=== PATIENT | female | born 1950 | race Caucasian/White ===

== ENCOUNTER → 2016-12-06 | Outpatient (CLI) | payer OTHER ==
[~2016-12-06] MED LIST: ASPIRIN81 M2; CALCIUM500 MG; CRESTOR10 MG; DAILY VITAMIN1 EAC5; FISH OIL300 MG; FOLIC ACID1 MG; VITAMIN D1000 UNI1
== END ==
LOC: RAD 09:26
DX: Z12.31 Encounter for screening mammogram for malignant neoplasm of breast (principal)

== ENCOUNTER → 2016-12-30 | Outpatient (CLI) | payer OTHER | LOC: ULTRA 11:27 | DX: N63 Unspecified lump in breast (principal) ==

== ENCOUNTER → 2017-01-30 | Outpatient (CLI) | payer OTHER | LOC: NUC 10:57 | DX: M85.89 Other specified disorders of bone density and structure, multiple sites (principal); N91.2 Amenorrhea, unspecified; Z78.0 Asymptomatic menopausal state ==

== ENCOUNTER → 2017-07-07 | Outpatient (CLI) | payer OTHER | LOC: RAD 07:27 | DX: M41.86 Other forms of scoliosis, lumbar region (principal) ==

== ENCOUNTER → 2017-07-07 | Outpatient (CLI) | payer OTHER | LOC: MRI 15:54 | DX: M51.26 Other intervertebral disc displacement, lumbar region (principal); M40.46 Postural lordosis, lumbar region; M43.16 Spondylolisthesis, lumbar region; M47.896 Other spondylosis, lumbar region; N28.1 Cyst of kidney, acquired ==

== ENCOUNTER 2018-11-05 21:35 | Emergency (ER) | payer OTHER ==
[~2018-11-05] VITALS: Ht 160 cm; Wt 61.2 kg
[2018-11-05 22:00] LABS: URINE BILIRUBIN NEGATIVE (Negative); URINE BLOOD TRACE (Negative); URINE CLARITY CLEAR; URINE COLOR YELLOW; URINE GLUCOSE-RANDOM* NEGATIVE (Negative); URINE KETONES NEGATIVE (Negative); URINE LEUKOCYTES-REFLEX NEGATIVE (Negative); URINE NITRITE-REFLEX NEGATIVE (Negative); URINE PROTEIN (DIPSTICK) NEGATIVE (Negative); URINE SPECIFIC GRAVITY <= 1.005 (1.005-1.035); URINE UROBILINOGEN 0.2 E.U./dl (0.2-1.0)
[2018-11-05 22:32] LABS: ABSOLUTE NEUTROPHILS 6.3 thou/uL (1.4-8.2); BASOPHILS 0.9 % (0.0-2.0); EOSINOPHILS 0.1 % (0.0-3.0); HEMATOCRIT 36.4 % (37.0-47.0); HEMOGLOBIN 12.3 gm/dL (12.0-15.0); LYMPHOCYTES 16.6 % (24.0-44.0); MCH 29.4 pg (26.0-34.0); MCHC 33.7 g/dL (28.0-37.0); MCV 87.2 fL (80.0-100.0); MONOCYTES 4.1 % (1.0-8.0); PLATELET COUNT 276 thou/uL (150-400); POLYS 78.3 % (36.0-66.0); RBC 4.17 mil/uL (4.20-5.00); RDW 14.9 % (10.5-14.5)
[2018-11-05] MEDS ORDERED: PREDNISONE 10 M10 MG PO (22:36)
[2018-11-05] MEDS ORDERED: COZAAR 25 MG TA25 M1 PO (22:37)
[2018-11-05] MEDS ORDERED: BONIVA150 MG PO (22:38)
[2018-11-05 22:39] LABS: BUN 19 mg/dL (7-18); CHLORIDE 106 mmol/L (98-107); CREATININE 1.1 mg/dL (0.6-1.0)
[2018-11-05 22:41] LABS: ANION GAP 11 mmol/L (7-16); CO2 26 mmol/L (21-32); GLUCOSE 105 mg/dL (74-106); POTASSIUM 4.3 mmol/L (3.5-5.1); SODIUM 143 mmol/L (136-145)
[2018-11-05 22:51] LABS: ALBUMIN 3.9 g/dL (3.4-5.0); LIPASE 93 U/L (73-393); SGOT 19 U/L (15-37); SGPT 23 U/L (30-65); TOTAL BILIRUBIN 0.7 mg/dL (<0.1-1.0); TROPONIN-I <0.06 ng/mL (<0.06)
[2018-11-06 00:15] VITALS: BP 171/76
--- NOTE | 2018-11-06 08:40 | EKG ---
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 : 1950 Requested By: Garry Wei Order Number: [id number] MD: Deion Padilla Measurements Intervals [place] Rate: 54 P: 12 NV: 128 QRS: -35 QRSD: 102 T: 2 QT: 428 QTc: 406 Interpretive Statements Sinus bradycardia Left axis deviation Poor R wave progression Compared to ECG 03/13/1992 08:45:00 Left-axis deviation now present Electronically Signed On 11-06-2018 8:40:02 CDT by Deion Padilla [email or web address] ��������������������������������������������� <ELECTRONICALLY SIGNED> ���������������������������������������� By: Deion Padilla MD, [facility] ��������������������������������������������� 11/06/18 0840 D: [id number] Deion Padilla MD, FACC /EPI
== END 2018-11-06 00:19 | disposition home or self-care (01) ==
LOC: ER 21:35
PROVIDERS: Emergency Medicine
DX: K52.9 Noninfective gastroenteritis and colitis, unspecified (principal)

== ENCOUNTER → 2019-03-04 | Outpatient (CLI) | payer OTHER ==
[~2019-03-04] MED LIST changes: +BONIVA150 MG PO; +COZAAR 25 MG TA25 M1 PO; +PREDNISONE 10 M10 MG PO
== END ==
LOC: RAD 15:45
DX: Z12.31 Encounter for screening mammogram for malignant neoplasm of breast (principal)

== ENCOUNTER → 2019-05-21 | Outpatient (CLI) | payer OTHER | LOC: NUC 10:12 | DX: M81.0 Age-related osteoporosis without current pathological fracture (principal); M85.88 Other specified disorders of bone density and structure, other site ==

== ENCOUNTER → 2019-07-23 | Outpatient (CLI) | payer OTHER ==
[~2019-07-23] VITALS: Ht 162.6 cm; Wt 60.3 kg
[~2019-07-23] MED LIST changes: +AMITRIPTYLINE H25 M4 PO; +FLEXERIL PO; +HYDROCODON-ACE1 EAC5 PO; +LORCET 5-325 M1 EACH PO; +PREDNISONE 5 MG5 M1 PO; +VALIUM5 MG PO
[2019-07-23 09:59] VITALS: BP 129/75
--- NOTE | 2019-07-23 09:59 | NUR ---
Pain Clinic Assessment: 1. History of Osteoarthritis: History of Rheumatoid Arthritis: 2. Height: 5 ft. 4 in. 162.6 cm. Weight: 133.0 lb. oz. 60.328 kg. Patient's BMI: 22.8 3. Vital Signs: BP: Pulse: Resp: Temp: 02 Sat: ECG Mon: 4. Pain Intensity: 10 5. Fall Risk: Dizziness: N Needs help standing or walking: N Fallen in the last 3 months: Y Fall risk comments: 6. Patient on Blood Thinner: None 7. History of Hypertension: Y 8. Opioid Therapy greater than 6 weeks: N Opiate Contract Signed: 9. Risk Assessment Tool Provided: LOW 10. Functional Assessment Tool: 11. Recreational Drug Use: Never Drug Type: Tobacco Use: Never Smoker Tobacco Type: Amount or Packs/day: How Many Years: Alcohol Use: No Frequency: Quant:
--- NOTE | 2019-07-23 10:49 | NUR ---
Pain Clinic Assessment: 1. History of Osteoarthritis: SPINE History of Rheumatoid Arthritis: POLYMYALGIA RHEUMATICA 2. Height: 5 ft. 4 in. 162.6 cm. Weight: 133.0 lb. oz. 60.328 kg. Patient's BMI: 22.8 3. Vital Signs: BP: 129/75 Pulse: 103 Resp: 14 Temp: 02 Sat: 98 ECG Mon: 4. Pain Intensity: 10 5. Fall Risk: Dizziness: N Needs help standing or walking: N Fallen in the last 3 months: Y Fall risk comments: 6. Patient on Blood Thinner: None 7. History of Hypertension: Y 8. Opioid Therapy greater than 6 weeks: N Opiate Contract Signed: 9. Risk Assessment Tool Provided: LOW 10. Functional Assessment Tool: / 11. Recreational Drug Use: Never Drug Type: Tobacco Use: Never Smoker Tobacco Type: Amount or Packs/day: How Many Years: Alcohol Use: No Frequency: Quant:
--- NOTE | 2019-08-19 12:08 | HPC ---
[facility] [place] [address] PAIN MANAGEMENT CONSULTATION Name: MIKE LUU Room #: REG [facility] Varun.#: [id number] Admission: 07/23/19 Attend Phys: Iggy Chisholm MD Discharge: Date of : 46 Report #: [id number] THIS REPORT FOR: cc: Norma Jackson MD, Carrie W. MD Morgan, Richard L. MD ~ CC: NORMA Luu MD DATE OF SERVICE: 07/23/2019 CHIEF COMPLAINT: Excruciating mid back pain with some radiation into both thighs. Dr. Michael Luu called me this morning and reported that his was in excruciating pain. I agreed to meet with the pain clinic this morning. She was visiting family in [place] few weeks ago, slipped on steps, bouncing down several on her tailbone. She suffered a sacrococcygeal fracture at L5 and has been experiencing severe pain in her sacrum. Over the course of the last week or two, the pain has changed and is more lumbrosacral. She has significant pain with movement, flexion, extension, rotation, [id number]. She has difficulty getting in and out of chairs. Over the last couple of days, the pain has started to radiate into the lateral thigh, but no further. She has some back spasm associated with that as well. She has been treating with hydrocodone with modest relief. She has also been on prednisone tapering dose for polymyalgia rheumatica. Other medications include Losartan, Boniva, multivitamins, calcium, vitamin D, fish oil, Crestor. ALLERGIES: None. PAST MEDICAL HISTORY: Remarkable for borderline hypertension. She denies cardiovascular disease. She is on no blood thinners. She denies GI issues. Osteopenia has been noted and has worsened between her last to assessments. This has worsened with corticosteroid use. REVIEW OF SYSTEMS: Positive for nocturia. She takes a stool softener to prevent constipation. 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 She denies use of tobacco, denies use of alcohol. PHYSICAL EXAMINATION: [facility] [address] [place] [address] PAIN MANAGEMENT CONSULTATION Name: MIKE LUU David Room #: REG [facility]#: [id number] Admission: 07/23/19 Attend Phys: Iggy Chisholm MD Discharge: Date of : 46 Report #: [id number] GENERAL: She does appear to be in significant distress. VITAL SIGNS: Blood pressure is 129/75, heart rate 103, respirations 14, O2 sat 98. She moves independently from sitting to standing position, but her gait is markedly antalgic. She has difficulty moving from sitting to standing. MUSCULOSKELETAL: Examination of the spine reveals slight rotational curvature in the thoracolumbar region. She has marked restrictions in lumbar flexion with increase in pain in both back with radiation and in legs. Back extension also increases pain. Lateral tilt and rotational movements are performed very cautiously with mild increases in pain. Examination of the lower extremities reveals negative straight leg raising in both the sitting and supine position. Deep tendon reflexes are 2+ at the knees and absent at the ankles and the Achilles reflex. Sensation is described as normal. She has guarding, which represents some generalized weakness of the lower extremities. IMPRESSION: This presentation is consistent with acute compression fracture. She has longstanding use of steroids and her most recent DEXA scan shows osteopenia. The trauma and mechanism of fracture of the sacrum would predispose to a fracture of the lumbothoracic vertebra. Her presentation is again consistent with this as well. Plain film x-rays were ordered and although the lumbar spine shows rotation, it does not demonstrate a marked compression. The thoracic spine was not performed in this series of x-rays. A stat MRI was ordered to rule out compression fracture. Compression fracture would be well treated with kyphoplasty if identified early. I requested urgent study to move forward if acute compression fracture is identified. Kyphoplasty can provide significant relief. An epidural steroid injection was considered. In this phase of a compression fracture, I would not perform an epidural steroid injection. If the MRI scan comes back showing spinal stenosis at L4-L5 where she has some early stenosis in 2018 with progression, I would consider an epidural steroid with 40 mg of triamcinolone to break the cycle of lumbosacral pain and radiating leg pain would be considered a component of radiculopathy. Further decisions will depend upon pending x-rays. Dr. Hipolito Hsu may perform an epidural this afternoon or I will see her back in the clinic next week. I prescribed, hydrocodone 10/325, #60, one tablet q. 4 hours p.r.n. severe pain. Gentle range of motion exercises and walking are recommended. Addendum: No fracture seen. Pain management with medication gentle ROM [facility] [address] [place] [address] PAIN MANAGEMENT CONSULTATION Name: MIKE LUU Room #: REG TATYANA Kitchen#: [id number] Admission: 07/23/19 Attend Phys: Iggy Chisholm MD Discharge: Date of : 46 Report #: [id number] exercise and tincture of time recommended. Followup by phone. Hopefully this will be self-limited. Soft tissue edema may suggest myfascial mechanism. <ELECTRONICALLY SIGNED> By: Iggy Chisholm MD 08/19/19 1208 1135 [id number] Iggy Chisholm MD /nt
== END ==
LOC: RAD 09:07 → PAIN 09:07
PROVIDERS: ATTEND Anesthesiology Pain Medicine
DX: S32.10XA Unspecified fracture of sacrum, initial encounter for closed fracture (principal); M48.08 Spinal stenosis, sacral and sacrococcygeal region; M48.061 Spinal stenosis, lumbar region without neurogenic claudication; M51.36 Other intervertebral disc degeneration, lumbar region; Z87.81 Personal history of (healed) traumatic fracture; Y93.89 Activity, other specified; Y92.89 Other specified places as the place of occurrence of the external cause; Y99.8 Other external cause status; X58.XXXA Exposure to other specified factors, initial encounter

== ENCOUNTER → 2020-01-07 | Outpatient (CLI) | payer OTHER | LOC: RAD 10:01 | DX: M25.762 Osteophyte, left knee (principal); M25.462 Effusion, left knee; M76.9 Unspecified enthesopathy, lower limb, excluding foot ==

== ENCOUNTER → 2020-05-16 | Outpatient (CLI) | payer OTHER ==
[~2020-05-16] VITALS: Ht 162.6 cm; Wt 63.5 kg
[~2020-05-16] MED LIST changes: -CRESTOR10 MG; +CRESTOR5 MG PO; +GABAPENTIN100 MG PO
[2020-05-16 10:14] VITALS: BP 136/101
--- NOTE | 2020-05-16 10:29 | NUR ---
Pain Clinic Assessment: 1. History of Osteoarthritis: SPINE History of Rheumatoid Arthritis: POLYMYALGIA RHEUMATICA 2. Height: 5 ft. 4 in. 162.6 cm. Weight: 140.0 lb. oz. 63.504 kg. Patient's BMI: 24.0 3. Vital Signs: BP: 136/101 Pulse: 86 Resp: 16 Temp: 02 Sat: 100 ECG Mon: 4. Pain Intensity: 10 WHEN IT HURTS 5. Fall Risk: Dizziness: N Needs help standing or walking: N Fallen in the last 3 months: N Fall risk comments: 6. Patient on Blood Thinner: None 7. History of Hypertension: Y 8. Opioid Therapy greater than 6 weeks: N Opiate Contract Signed: 9. Risk Assessment Tool Provided: LOW 10. Functional Assessment Tool: 11. Recreational Drug Use: Never Drug Type: Tobacco Use: Never Smoker Tobacco Type: Amount or Packs/day: How Many Years: Alcohol Use: No Frequency: Quant:
== END ==
LOC: PAIN 06:50
PROVIDERS: ATTEND Anesthesiology Pain Medicine
DX: M47.812 Spondylosis without myelopathy or radiculopathy, cervical region (principal)

== ENCOUNTER → 2020-06-02 | Outpatient (CLI) | payer OTHER | LOC: MRI 08:36 | PROVIDERS: ATTEND Anesthesiology Pain Medicine | DX: M50.21 Other cervical disc displacement, high cervical region (principal); M48.02 Spinal stenosis, cervical region; M47.812 Spondylosis without myelopathy or radiculopathy, cervical region ==

== ENCOUNTER 2021-02-04 11:13 | Emergency (ER) | payer OTHER ==
[~2021-02-04] VITALS: Ht 160 cm; Wt 62.6 kg
[2021-02-04] MEDS ORDERED: SINGULAIR 10 MG10 M1 PO (11:38)
[2021-02-04] MEDS ORDERED: CEPHALEXIN500 MG PO (12:23)
[2021-02-04 12:36] VITALS: BP 122/78
== END 2021-02-04 12:56 | disposition home or self-care (01) ==
LOC: ER 11:13
DX: S90.922A Unspecified superficial injury of left foot, initial encounter (principal); S91.112A Laceration without foreign body of left great toe without damage to nail, initial encounter; Z79.899 Other long term (current) drug therapy; W45.8XXA Other foreign body or object entering through skin, initial encounter; Y93.89 Activity, other specified; Y92.89 Other specified places as the place of occurrence of the external cause; Y99.8 Other external cause status

== ENCOUNTER → 2021-04-26 | Outpatient (CLI) | payer OTHER ==
[~2021-04-26] MED LIST changes: +CEPHALEXIN500 MG PO; +SINGULAIR 10 MG10 M1 PO
== END ==
LOC: RAD 15:20
PROVIDERS: ATTEND Internal Medicine
DX: R05.9 Cough, unspecified (principal)

== ENCOUNTER → 2021-05-04 | Outpatient (CLI) | payer OTHER ==
[~2021-05-04] VITALS: Ht 160 cm; Wt 57.2 kg
[~2021-05-04] MED LIST changes: -CALCIUM500 MG; +CALCIUM500 MG PO; +FISH OIL 1,0001 EAC9 PO; +FOLIC ACID1 MG PO; +LOSARTAN POTASS50 MG PO; +RAYOS5 MG PO; +TRELEGY ELLIPT1 EACH INH; -VITAMIN D1000 UNI1; +VITAMIN D325 MC3 PO
--- NOTE | ~2021-05-04 | P ---
[facility] [place] [address] [place] [address] PROCEDURE REPORT Name: MIKE CASTAÑEDA [id number] Admission: 05/04/21 Attend Phys: Jw Farfan Discharge: Date of : 46 Report #: [id number] THIS REPORT FOR: cc: Norma Jackson MD, Carrie W. MD McElhinney, Christian C. MD ~ cc: Norma Jackson MD DATE OF SERVICE: 05/04/2021 PROCEDURE PERFORMED: Upper endoscopy with biopsies. HISTORY OF PRESENT ILLNESS: The patient is a 70-year-old female with a history of chronic cough in the past, was responding to PPI therapy on a p.r.n. basis. More recently, approximately 2 months ago, the patient with an upper respiratory infection and has had chronic cough again treated with a PPI for approximately one to two weeks without much improvement. She denies any dysphagia, no nausea or vomiting. Plan is for upper endoscopy. DESCRIPTION OF PROCEDURE: The risks and benefits of the procedure were explained to the patient, those risks including but not limited to bleeding, perforation and the risk of sedation. She understood these risks and gave informed consent. Sedation was given using propofol per Anesthesia. Next, using a standard Olympus upper endoscope, the scope was placed in the patient's mouth and advanced under direct vision through the esophagus, stomach and into the second portion of the duodenum. The larynx was normal in appearance. The upper and mid esophagus was normal. In the distal esophagus, mild grade A erosive esophagitis was noted. A possible short segment of Fowler's was noted. Biopsies were obtained. In the stomach, there was a mild to moderate gastritis noted in the fundus and upper body. Biopsies were obtained to rule out H. pylori. The gastric antrum was normal. The pylorus was normal and patent. The duodenal bulb, first and second portion were all normal. The scope was then withdrawn and the procedure terminated. The patient tolerated the procedure well. IMPRESSION: 1. Grade A mild erosive esophagitis. 2. 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 3. Gastritis. 4. Otherwise, normal upper endoscopy. RECOMMENDATIONS: 1. Await biopsy results. 2. Would recommend treating with PPI therapy on a daily basis for a longer period of time. [address] [address] PROCEDURE REPORT Name: MIKE CASTAÑEDA David Room #: REG Maru Kitchen#: [id number] Admission: 05/04/21 Attend Phys: Jw Farfan Discharge: Date of : 46 Report #: [id number] Thank you for allowing me to participate in her care. By: [id number] Jw Gonzales MD /nt
--- NOTE | 2021-05-07 18:06 | PATH ---
[facility] [place] [address] [place] [address] PATHOLOGY RPT PROCEDURE Name: ARINA LUU Room #: REG TATYANA Imtiaz#: [id number] Admission: 05/04/21 Date of : 46 Discharge: Report #: [id number] Path Case #: [id number] [facility] Accession Number: [id number] . 01 Material submitted: . PART A: gastrointestinal site - GASTRITIS BIOPSY R/O H. PYLORI PART B: esophagus - DISTAL ESOPHAGUS R/O BAILEY'S. Modifiers: distal . 01 Clinical history: . ESOPHAGOGASTRODUODENOSCOPY EPIGASTRIC PAIN EPIGASTRITIS, GASTRITIS, CHRONIC COUGH . 01 Diagnosis: A. Gastric biopsy, "gastritis biopsy, rule out H. pylori": - Moderate chronic gastritis. - The immunoperoxidase stain for Helicobacter pylori is positive. . B. Squamous and glandular mucosa, "distal esophagus biopsy, rule out Bailey's esophagus": - Glandular gastric type mucosa reveals moderate chronic gastritis. - The esophagogastric junction reveals reflux esophagitis with reactive squamous and glandular mucosa. - No obvious goblet cell metaplasia, dysplasia or malignancy. . (SHA:gallo; 05/07/2021) [facility] 05/07/2021 1550 Local . 01 Electronically signed: . Rick Sousa MD, Pathologist NPI- [id number] . 01 Gross description: . A. Received in formalin labeled "Jus Arina, gastritis BX rule out H. pylori" are multiple ryan-brown soft tissue fragments measuring in aggregate 1.0 x 0.3 x 0.1 cm. The specimen is submitted entirely in A1. . B. Received in formalin labeled "Arina Luu, distal esophagus rule out Bailey's" are multiple ryan-brown soft tissue fragments measuring in aggregate 0.5 x 0.5 x 0.1 cm. The specimen is submitted entirely in B1. [place] [facility] 05/06/2021 0845 Local . 01 Pathologist provided ICD-10: K29.50, K21.00, B96.81 . 01 CPT . [address] [address] PATHOLOGY RPT PROCEDURE Name: ARINA LUU A Room #: REG [facility] Kitchen#: [id number] Admission: 05/04/21 Date of : 46 Discharge: Report #: [id number] Path Case #: [id number] Specimen Comment: A courtesy copy of this report has been sent to [phone] Specimen Comment: [id number] Specimen Comment: Report sent to / DR ESPINOZA Performed at: [address], [place], [place] [id number] MD Rick Sousa MD Phone: [phone]
== END | disposition home or self-care (01) ==
LOC: GI 08:47
PROVIDERS: ATTEND Specialist
DX: R10.13 Epigastric pain (principal); K29.50 Unspecified chronic gastritis without bleeding; B96.81 Helicobacter pylori [H. pylori] as the cause of diseases classified elsewhere; K21.00 Gastro-esophageal reflux disease with esophagitis, without bleeding; I10 Essential (primary) hypertension; E78.00 Pure hypercholesterolemia, unspecified; Z98.890 Other specified postprocedural states; Z79.899 Other long term (current) drug therapy; Z87.891 Personal history of nicotine dependence; Z85.828 Personal history of other malignant neoplasm of skin; Z20.822 Contact with and (suspected) exposure to COVID-19; Z98.41 Cataract extraction status, right eye; Z98.42 Cataract extraction status, left eye
CPT/HCPCS: 62110; 62900

== ENCOUNTER → 2021-06-06 | Outpatient (CLI) | payer OTHER | LOC: BC 08:29 | PROVIDERS: ATTEND Obstetrics & Gynecology | DX: Z12.31 Encounter for screening mammogram for malignant neoplasm of breast (principal); N64.89 Other specified disorders of breast ==

== ENCOUNTER → 2021-06-11 | Outpatient (CLI) | payer OTHER | LOC: BC 09:44 | PROVIDERS: ATTEND Obstetrics & Gynecology | DX: N63.13 Unspecified lump in the right breast, lower outer quadrant (principal); R92.8 Other abnormal and inconclusive findings on diagnostic imaging of breast; N63.20 Unspecified lump in the left breast, unspecified quadrant; N64.89 Other specified disorders of breast ==

== ENCOUNTER → 2021-07-09 | Outpatient (CLI) | payer OTHER ==
[~2021-07-09] VITALS: Ht 162.6 cm; Wt 59.8 kg
[~2021-07-09] MED LIST changes: +HYDROCODON-ACE1 EAC7 PO; +MEDROLDOSEPACK PO
[2021-07-09 11:13] VITALS: BP 134/87
--- NOTE | 2021-07-09 11:35 | NUR ---
Pain Clinic Assessment: 1. History of Osteoarthritis: SPINE History of Rheumatoid Arthritis: POLYMYALGIA RHEUMATICA 2. Height: 5 ft. 4 in. 162.6 cm. Weight: 131.8 lb. oz. 59.784 kg. Patient's BMI: 22.6 3. Vital Signs: BP: 134/87 Pulse: 75 Resp: 14 Temp: 02 Sat: 97 ECG Mon: 4. Pain Intensity: 1 5. Fall Risk: Dizziness: N Needs help standing or walking: N Fallen in the last 3 months: N Fall risk comments: 6. Patient on Blood Thinner: None 7. History of Hypertension: Y 8. Opioid Therapy greater than 6 weeks: N Opiate Contract Signed: 9. Risk Assessment Tool Provided: LOW 10. Functional Assessment Tool: 11. Recreational Drug Use: Never Drug Type: Tobacco Use: Former Smoker Tobacco Type: Amount or Packs/day: How Many Years: Alcohol Use: No Frequency: Quant:
== END ==
LOC: PAIN 06:57
PROVIDERS: ATTEND Anesthesiology Pain Medicine
DX: M47.812 Spondylosis without myelopathy or radiculopathy, cervical region (principal); M48.02 Spinal stenosis, cervical region; G89.29 Other chronic pain; M54.2 Cervicalgia; M54.81 Occipital neuralgia; Z79.899 Other long term (current) drug therapy